=== PATIENT | male | born 1930 | race Caucasian/White ===

== ENCOUNTER 2018-12-20 09:45 | Observation (INO) | payer MEDICARE ==
[~2018-12-20] VITALS: Ht 172.7 cm; Wt 78.8 kg
[~2018-12-20 09:45] MED LIST: BACITRACIN 50,000 UNIT ONE; BUPIVACAINE/PF 0.25% ONE; EPINEPHRINE 1 MG/ML, 1ML ONE; THROMBIN 5,000 UNIT VIAL TP ONE; VANCOMYCIN 1,000 MG ONE
[2018-12-20] MEDS ORDERED: PROPOFOL 10 MG/ML, 20ML ONE (10:42)
[2018-12-20] MEDS ORDERED: SUCCINYLCHOLINE 20 MG/ML, 10ML ONE (10:42)
[2018-12-20] MEDS ORDERED: GLYCOPYRROLATE 0.2MG/1ML, 5ML ONE (10:42)
[2018-12-20] MEDS ORDERED: DEXAMETHASONE 4 MG/ML, 1ML ONE (10:42)
[2018-12-20] MEDS ORDERED: ROCURONIUM 10MG/ML,5ML ONE (10:42)
[2018-12-20] MEDS ORDERED: FENTANYL PF 250 MCG/5ML ONE (10:42)
[2018-12-20] MEDS ORDERED: ONDANSETRON 2MG/ML, 2ML ONE (10:42)
[2018-12-20] MEDS ORDERED: NEOSTIGMINE 1 MG/ML, 10ML ONE (10:42)
[2018-12-20] MEDS ORDERED: CEFAZOLIN 1,000 MG ONE (10:42)
[2018-12-20] MEDS ORDERED: LIDOCAINE-MPF 2% ,5ML ONE (10:44)
[2018-12-20] MEDS ORDERED: SIMV40TA3 PO (10:51)
[2018-12-20] MEDS ORDERED: METF500T17 PO (10:51)
[2018-12-20] MEDS ORDERED: HYDR-3237 PO (10:51)
[2018-12-20 10:52] VITALS: BP 126/74
[2018-12-20] MEDS ORDERED: LACTATED RINGERS 1,000 ML IV SCH (11:04)
[2018-12-20] MEDS ORDERED: OXYcodone 5 MG/5 ML ORAL.SOL UDC PO PRN (13:00)
[2018-12-20] MEDS ORDERED: ONDANSETRON ODT 8 MG PO PRN (13:00)
[2018-12-20] MEDS ORDERED: ACETAMINOPHEN 325 MG TABLET PO PRN (13:00)
[2018-12-20] MEDS ORDERED: DIAZEPAM 5 MG/ML, 2ML IVPush PRN (13:00)
[2018-12-20] MEDS ORDERED: PROMETHAZINE 25 MG/ML, 1ML IV PRN (13:00)
[2018-12-20] MEDS ORDERED: ONDANSETRON 2MG/ML, 2ML IV PRN (13:00)
[2018-12-20] MEDS ORDERED: FENTANYL PF 100 MCG/2ML ONE ×3 (13:36→14:37)
[2018-12-20] MEDS ORDERED: PROMETHAZINE 25 MG/ML, 1ML IM PRN (14:30)
[2018-12-20] MEDS: CEFAZOLIN PMX 1GM/50ML 50 ML IVPB SCH ×2 (14:30→20:32)
[2018-12-20] MEDS ORDERED: DIPHENHYDRAMINE 50 MG CAPSULE PO PRN (14:30)
[2018-12-20] MEDS ORDERED: MAGNESIUM HYDROXIDE 8%, 30ML UDC PO PRN (14:30)
[2018-12-20] MEDS ORDERED: ONDANSETRON 2MG/ML, 2ML IVPush PRN (14:30)
[2018-12-20] MEDS ORDERED: BISACODYL 10 MG SUPP PR PRN (14:30)
[2018-12-20] MEDS ORDERED: PHARMACY MAY ADJ FOR RENAL FX MC PRN (14:30)
[2018-12-20] MEDS ORDERED: HYDROmorphone 1 MG/ML, 1ML IVPush PRN (14:30)
[2018-12-20] MEDS ORDERED: OXYcodone 5 MG/5 ML ORAL.SOL UDC ONE (14:37)
[2018-12-20] MEDS: FENTANYL PF 100 MCG/2ML IV PRN ×2 (14:39→14:45)
[2018-12-20] MEDS ORDERED: HYDROmorphone 2 MG/ML, 1ML ONE (14:54)
[2018-12-20] MEDS: HYDROmorphone 2 MG/ML, 1ML IVPush PRN ×3 (14:56→15:17)
[2018-12-20 17:30] VITALS: BP 150/73
[2018-12-20] MEDS: TIZANIDINE 4MG TABLET PO PRN (17:45)
[2018-12-20 20:28] VITALS: BP 133/68
[2018-12-20] MEDS: HYDROcodone/APAP 5/325 TABLET PO PRN (20:32)
[2018-12-20] MEDS: SODIUM CHLORIDE FLUSH 10ML SYR IVF SCH (20:33)
[2018-12-20] MEDS: metFORMIN 500 MG TABLET PO SCH (20:33)
[2018-12-20] MEDS ORDERED: SIMVASTATIN 40 MG TABLET PO SCH (21:00)
[2018-12-20] MEDS: NS + 20MEQ KCL 1,000 ML IV SCH (21:44)
[2018-12-21 00:13] VITALS: BP 99/54
[2018-12-21] MEDS: HYDROcodone/APAP 5/325 TABLET PO PRN ×2 (02:11→06:13)
[2018-12-21] MEDS: TIZANIDINE 4MG TABLET PO PRN (03:42)
[2018-12-21 04:09] VITALS: BP 117/47
[2018-12-21] MEDS: NS + 20MEQ KCL 1,000 ML IV SCH (05:30)
[2018-12-21] MEDS: metFORMIN 500 MG TABLET PO SCH (08:03)
[2018-12-21] MEDS: SODIUM CHLORIDE FLUSH 10ML SYR IVF SCH (08:04)
[2018-12-21 08:08] VITALS: BP 119/61
[2018-12-21] MEDS ORDERED: SENNA/DOCUSATE TABLET PO SCH (09:00)
[2018-12-21] MEDS ORDERED: TIZA2TAB PO (09:20)
[2018-12-21] MEDS ORDERED: HYDR-3237 PO (09:20)
== END 2018-12-21 11:10 | disposition home or self-care (01) ==
LOC: OUT 09:45 → ORIP 14:24 → 4NOR 17:12 → DCLOUNGE 12-21 10:50
PROVIDERS: ADMIT Neurological Surgery; ATTEND Neurological Surgery
DX: M48.061 Spinal stenosis, lumbar region without neurogenic claudication (principal); M46.90 Unspecified inflammatory spondylopathy, site unspecified; M51.26 Other intervertebral disc displacement, lumbar region; M51.36 Other intervertebral disc degeneration, lumbar region; Z79.899 Other long term (current) drug therapy
CPT/HCPCS: 63047; 63048; 72100; 82962; 96365; 97161; G0378; J0171; J0330; J0690; J1100; J1170; J2405; J2704; J2710; J3010; J3480; J3490; J3370

== ENCOUNTER → 2019-12-19 | Outpatient (CLI) | payer MEDICARE ==
[~2019-12-19] MED LIST changes: -BACITRACIN 50,000 UNIT ONE; -BUPIVACAINE/PF 0.25% ONE; -EPINEPHRINE 1 MG/ML, 1ML ONE; +HYDR-3237 PO; +METF500T17 PO; +SIMV40TA20 PO; -THROMBIN 5,000 UNIT VIAL TP ONE; +TIZA2TAB2 PO; +TRAZ50TA66 PO; -VANCOMYCIN 1,000 MG ONE
[2019-12-19 15:41] LABS: INTERNATIONAL NORMALIZED RATIO 1.01 (0.93-1.1); PROTHROMBIN TIME 10.7 Seconds (9.6-11.5)
[2019-12-19 15:49] LABS: MICROSCOPIC NOT IND
[2019-12-19 15:50] LABS: CULTURE INDICATED? NO
== END | disposition home or self-care (01) ==
LOC: STAR 14:07
PROVIDERS: ATTEND Neurological Surgery
DX: Z01.818 Encounter for other preprocedural examination (principal); M48.061 Spinal stenosis, lumbar region without neurogenic claudication
CPT/HCPCS: 36415; 81003; 85610; 85730; 93005

== ENCOUNTER → 2020-02-02 | Outpatient (CLI) | payer MEDICARE ==
[~2020-02-02] MED LIST changes: +TELM40TA PO
[2020-02-02 10:00] LABS: MICROSCOPIC AUTO
[2020-02-02 10:03] LABS: CULTURE INDICATED? NO
[2020-02-02 10:09] LABS: BASOPHILS # (AUTO) 0.03 x10^3/uL (0-0.1); BASOPHILS % (AUTO) 1 % (0-1); EOSINOPHILS # (AUTO) 0.48 x10^3/uL (0-0.4); EOSINOPHILS % (AUTO) 8 % (1-7); INTERNATIONAL NORMALIZED RATIO 1.02 (0.93-1.1); LYMPHOCYTES # (AUTO) 0.92 x10^3/uL (1-3.4); LYMPHOCYTES % (AUTO) 16 % (22-44); MD NO; MEAN CORPUSCULAR HEMOGLOBIN 32.3 pg (27.5-34.5); MEAN CORPUSCULAR HGB CONC 33.1 g/dL (33.2-36.2); MEAN CORPUSCULAR VOLUME 97.7 fL (81-97); MEAN PLATELET VOLUME 9.7 fL (7.4-10.4); MONOCYTES # (AUTO) 0.57 x10^3/uL (0.2-0.8); MONOCYTES % (AUTO) 10 % (2-9); NEUTROPHILS % (AUTO) 65 % (42-75); PLATELET COUNT 171 x10^3/uL (130-400); PROTHROMBIN TIME 10.8 Seconds (9.6-11.5); RED BLOOD COUNT 4.53 x10^6/uL (4.38-5.82); RED CELL DISTRIBUTION WIDTH 14.2 % (9.4-14.8)
[2020-02-02 10:16] LABS: ALANINE AMINOTRANSFERASE 15 U/L (12-78); ALBUMIN 4.2 g/dL (3.4-5.0); ANION GAP 7 mmol/L (5-15); CALCIUM 9.1 mg/dL (8.5-10.1); CHLORIDE 104 mmol/L (98-107); CREATININE 1.17 mg/dL (0.7-1.3)
[2020-02-02 10:18] LABS: ALKALINE PHOSPHATASE 76 U/L (45-117); BILIRUBIN,TOTAL 0.5 mg/dL (0.2-1.0); TOTAL PROTEIN 7.9 g/dL (6.4-8.2)
== END | disposition home or self-care (01) ==
LOC: STAR 08:47
PROVIDERS: ATTEND Neurological Surgery
DX: Z01.818 Encounter for other preprocedural examination (principal); M48.061 Spinal stenosis, lumbar region without neurogenic claudication
CPT/HCPCS: 36415; 80053; 81001; 85025; 85610; 85730